=== PATIENT | female | born 1975 | race Caucasian/White ===

== ENCOUNTER 2025-02-26 08:13 | Outpatient (AMB) | payer OTHER, SELFPAY ==
--- OUTSIDE RECORDS SUMMARY | 2025-02-26 09:46 | XMS_ITS | Clinical Summary ---
Author Organization [facility] Address [address] [place] [address] Phone Care Team Providers Care Speeder Machine Operator Name Role Phone Constanza Chase DO Primary Care Provide r Allergies No known active allergies Medications Hospital, Clinic, or Other Facility Administered Medication Ordered Dose Route Frequency Start Date End Date Status levonorgestrel (MIRENA) 20 mcg/24 hours (5 yrs) 52 mg intrauterine device 1 eachIndications:Encounter for insertion of intrauterine contraceptive device 1 each Utrn Every 5 years 08/17/2018 A ctive Active Problems Problem Noted Date Diagnosed Date IUD (intrauterine device) in place 08/17/2018 Overview (08/17/2018): Mirena replaced 08/17/2018 Benign essential hypertension 10/03/2017 Assessment & Plan (10/24/2017 1:23 PM EDT): Well-controlled at the present time Assessment & Plan (10/03/2017 9:57 AM EDT): Well-controlled at the present time not on any medications. Venous stasis dermatitis of both lower extremiti es 10/03/2017 Assessment & Plan (10/24/2017 1:23 PM EDT): As mentioned she has significant venous claudication the left lower extremity from severe reflux in the left great saphenous vein we are going to ablate this I will see the patient thereafter in follow-up Assessment & Plan (10/03/2017 9:57 AM EDT): As above we are going to order a venous reflux study I am anticipating she will have more the way of reflux on the left than the right I will see her thereafter in follow-up and then tailor therapy. Resolved Problems Problem Noted Date Diagnosed Date Resolved Date Obesity (BMI 30-39.9) 10/03/20172019 Assessment & Plan (10/24/2017 1:24 PM EDT): She is exercising on a regular basis and well aware of the need for lifestyle modification Assessment & Plan (10/03/2017 9:57 AM EDT): This patient is overweight but she is very conscious of it and is actively dieting and exercising to lose weight. Immunizations Immunization Administration Dates Next Due COVID-19 (Pre-12/20) Pfizer Vaccine, mRNA, PF Family History Medical History Relation Comments Diabetes Father Hypertension Father Alzheimer's disease Mother Brain cancer Mother Relation Status Comments Father Mother Social History Tobacco Use Types Packs/Day Years Used Date Smoking Tobacco: Never Smokeless Tobacco: Never Tobacco Cessation:Counseling Given: Not Answered Alcohol Use Standard Drinks/Week Comments Not Currently 0 (1 standard drink = 0.6 oz pur e alcohol) Education Answer Date Recorded Are you interested in more education? Not on swapna e 06/25/2022 Are you concerned about learning? Not on file 06/25/2022 No 06/25/2022 No 06/25/2022 Digital Access Answer Date Recorded No 07/23/2022 No 07/23/2022 Reliable internet access at home? Not on file 07/23/2022 Device with a working camera? Not on file Comments No Sex and Gender Information Value Date Recorded Sex Assigned at Not on file Legal Sex Female 9:30 PM EDT Gender Identity Not on file Sexual Orientation Not on file Last Filed Vital Signs Vital Sign Reading Time Taken Comments Blood Pressure 121/72 03/08/2024 12:26 PM EST Pulse 58 03/08/2024 12:26 PM EST Temperature 36.1 C (97 F) 03/08/2024 12:26 PM EST Respiratory Rate 17 03/08/2024 12:26 PM EST Oxygen Saturation 99% 03/08/2024 12:26 PM EST Inhaled Oxygen Concentration - - Weight 75.8 kg (167 lb) 03/08/2024 12:26 PM EST Height 157.5 cm (5' 2 ) 03/08/2024 12:26 PM EST Body Mass Index 30.54 03/08/2024 12:26 PM EST Plan of Treatment Upcoming Encounters Date Type Department Care Team (Late st Contact Info) Description 11/09/2024 Procedure Pass [address] [place] [address] 05/20/2025 10:15 AM EDT Appointment [address] [place] [address] Constanza Chase, [address] [place] [address] [place] [address] Health Maintenance Due Date Last Done Comments LIPID PANEL 1973 DEPRESSION SCREENING 1985 HEPATITIS C SCREENING 07/27/1991 HIV ONE-TIME SCREENING (18-6 5 YEARS) 07/27/1991 SCREENING FOR DIABETES 2008 COLOGUARD 2018 COLONOSCOPY 2018 COLORECTAL CANCER SCREENING 2018 FIT TEST 2018 FOBT 2018 SIGMOIDOSCOPY 2018 VIRTUAL COLONOSCOPY 2018 Adult Td,Tdap Booster 09/27/2021 09/28/2011 PNEUMOCOCCAL VACCINES (50+ years) (1 of 1 - PCV) 07/27/2023 ZOSTER VACCINES (1 of 2) 07/27/2023 BLOOD PRESSURE 09/05/2024 03/08/2024 INFLUENZA VACCINE (#1) 2024 0, 02/01/2012, 02/04/2010 COVID-19 VACCINE (2 - 2024-2 6 season) 2024 05/09/2020 MAMMOGRAM 02/07/2026 02/08/2024 IUD 08/17/2026 08/17/2018 PAP SMEAR 01/31/2027 02/01/2024, 02/25/2017 RSV VACCINE (1 - 1-dose 75+ series) 2048 SMOKING STATUS SCREENING (On ce After 26 Yrs) Completed 02/08/2024 HEPATITIS A VACCINES Aged Out No long er eligible based on patient's age to complete this topic HIB VACCINES Aged Out No longer eligi ble based on patient's age to complete this topic MENINGOCOCCAL VACCINES (ACWY) Aged Out No longer eligible based on patient's age to complete this topic MENINGOCOCCAL VACCINES (B) Aged Out N o longer eligible based on patient's age to complete this topic Medical Devices Not on file Procedures Procedure Name Priority Date/Time Associated Diagnosis Comments BI MAMMOGRAM SCREENING WITH TOMOSYNTHESIS WITH CAD (BILATERAL) Routine 02/08/2024 8:35 AM EST Encounter for gynecological examination without abnormal finding PAP TEST Routine 02/01/2024 12:00 AM EST from Last 3 Months or Most Recently Relevant to Health Maintenance Results * (ABNORMAL) BI MAMMOGRAM SCREENING WITH TOMOSYNTHESIS WITH CAD (BILATERAL) (02/08/2024 8:35 AM EST) Anatomical Region Laterality Modality Breast Left, Breast Right, Breast Bilateral Bila teral Mammography 02/08/2024 12:5 5 PM EST Impressions 02/08/2024 12:58 PM EST 1. Focal asymmetry in the right breast for which additional imaging is recommended with diagnostic mammography and possible ultrasound. 2. No mammographic evidence of malignancy in the left breast. BI-RADS 0 INCOMPLETE Needs additional imaging evaluation The patient will be notified of the results and recommendations. The mammography department will contact the patient to arrange for the additional imaging. Narrative 02/08/2024 12:58 PM EST BI MAMMOGRAM SCREENING WITH TOMOSYNTHESIS WITH CAD (BILATERAL) Additional patient information: Screening. COMPARISON: This is a baseline examination. Breast composition: There are scattered areas of fibroglandular density. FINDINGS: Right A focal asymmetry is present on CC view in the outer right breast at anterior depth. Left No abnormal masses, suspicious calcifications, or other significant findings are identified mammographically in the left breast. Procedure Note Yun Michelle MD - 02/08/2024 BI MAMMOGRAM SCREENING WITH TOMOSYNTHESIS WITH CAD (BILATERAL) Additional patient information: Screening. COMPARISON: This is a baseline examination. Breast composition: There are scattered areas of fibroglandular density. FINDINGS: Right A focal asymmetry is present on CC view in the outer right breast atanterior depth. Left No abnormal masses, suspicious calcifications, or other significantfindings are identified mammographically in the left breast. IMPRESSION: 1. Focal asymmetry in the right breast for which additional imaging isrecommended with diagnostic mammography and possible ultrasound. 2. No mammographic evidence of malignancy in the left breast. BI-RADS 0 INCOMPLETE Needs additional imaging evaluation The patient will be notified of the results and recommendations. Themammography department will contact the patient to arrange for theadditional imaging. us Ari Rangel MD IMG MG EXAMS Final Re sult * Pap Test (02/01/2024 12:00 AM EST) Report [address] [address] Commercial Account Officer: Gerhard Mancuso MD [employer] Cytology Report FINAL DIAGNOSIS A. PAP SMEAR (THIN PREP) CE: SPECIMEN ADEQUACY: Satisfactory for evaluation; transformation zone present. INTERPRETATION: NEGATIVE FOR INTRAEPITHELIAL LESION OR MALIGNANCY. This specimen was analyzed by the automated ThinPrep Imaging System ([employer] and the selected ward were reviewed by a mortgage clerk. Electronically Signed Out By: FAVIAN Hurtado(ASCP) The Pap test is a screening test primarily for squamous cancers and precursors and has associated false-negative and false-positive results. New technologies such as liquid-based preparations may decrease but will not eliminate all false-negative results. Regular sampling and follow-up of unexplained clinical signs and symptoms are recommended to minimize false negative results. PROCEDURES/ADDENDA HPV Testing (Requested) Ordered Date: 02/02/2024 A. PAP SMEAR (THIN PREP) CE: High-risk HPV Panel w/ extended genotyping NEG HPV 16-NEG HPV 18-NEG HPV 45-NEG HPV 33/58-NEG HPV 31-NEG HPV 56/59/66-NEG HPV 51-NEG HPV 52-NEG HPV 35/39/68-NEG Performed by real-time polymerase chain reaction (PCR) at [address] using the FDA-approved BD Onclarity9 HPV Assay with extended genotyping. Uses of the assay in scenarios other than those approved by the FDA should be considered off-label use. The accuracy and precision of this test for all other off-label specimen sources has been verified in the Cytopathology Laboratory of the [facility] and has not been cleared or approved by the U.S. Food and Drug Administration. Clinical correlation is advised. The assay assesses the E6/E7 DNA target and utilizes human beta globin as an internal control. Cytology and HPV testing are screening assays and should not be used as the sole means of detecting cancer. False-positives and false-negatives can occur. CLINICAL HISTORY Date of Last Menstrual Period: Not Provided Menstrual History: Lydia-Menopausal Unknown Contraceptive History: IUD Other Clinical Conditions: Screening Pap SPECIMEN SOURCE A: PAP SMEAR (THIN PREP) CE Patient Name: TARA BENZ : 1975 (Age: 48) Sex: F Institution: [facility] Location: [facility] Date of Collection: 02/01/2024 Date of Reported: 02/06/2024 14:36 Results to: Ari Rangel MD [facility] Final Diagnosis A. PAP SMEAR (THIN PREP) CE: SPECIMEN ADEQUACY: Satisfactory for evaluation; transformation zone present. INTERPRETATION: NEGATIVE FOR INTRAEPITHELIAL LESION OR MALIGNANCY. This specimen was analyzed by the automated ThinPrep Imaging System ([employer].) and the selected ward were reviewed by a mortgage clerk. [facility] Results\Inter pretation A. PAP SMEAR (THIN PREP) CE: High-risk HPV Panel w/ extended genotyping NEG HPV 16-NEG HPV 18-NEG HPV 45-NEG HPV 33/58-NEG HPV 31-NEG HPV 56/59/66-NEG HPV 51-NEG HPV 52-NEG HPV 35/39/68-NEG Performed by real-time polymerase chain reaction (PCR) at [address], [place], [place] using the FDA-approved BD Onclarity HPV Assay with extended genotyping. Uses of the assay in scenarios other than those approved by the FDA should be considered off-label use. The accuracy and precision of this test for all other off-label specimen sources has been verified in the Cytopathology Laboratory of the [facility] and has not been cleared or approved by the U.S. Food and Drug Administration. Clinical correlation is advised. The assay assesses the E6/E7 DNA target and utilizes human beta globin as an internal control. Cytology and HPV testing are screening assays and should not be used as the sole means of detecting cancer. False-positives and false-negatives can occur. [facility] Conversion Type (Conversion Source) 02/01/2024 02/02/2024 9:56 AM EST us Ari Rangel MD CYTOLOGY ORDERABLES Edit ed Result - Final [facility] [address] [place] [address] from Last 3 Months or Most Recently Relevant to Health Maintenance [place] [address] [place] [address] Care Teams Speeder Machine Operator Relationship Specialty Start Date End Date Constanza Chase DO [address] [place] [phone] PCP - General Internal Medicine 10/03/17 Additional Source Comments The information contained in this document represents components of the legal health record. It is not the complete legal health record.[facility]
--- OUTSIDE RECORDS SUMMARY | 2025-02-26 09:46 | XMS_ITS | Encounter Summary ---
Author Organization [facility] Address [address] [place] [address] Phone Care Team Providers Care Battery Stacker Name Role Phone Constanza Chase Primary Care Provide r Encounter Details Date Type Department Care Team (Late st Contact Info) Description 02/01/2024 Procedure Pass [address] [address] Social History Tobacco Use Types Packs/Day Years Used Date Smoking Tobacco: Never Smokeless Tobacco: Never Alcohol Use Standard Drinks/Week Comments Not Currently [...] on file Sexual Orientation Not on file documented as of this encounter Plan of Treatment Upcoming Encounters Date Type Department Care Team (Late st Contact Info) Description 11/09/2024 Procedure Pass [address] [place] [address] 05/20/2025 10:15 AM EDT Appointment [place] [place] [address] Constanza Chase DO [address] [place] [phone] documented as of this encounter Visit Diagnoses Not on filedocumented in this encounter Care Teams Battery Stacker Relationship Specialty Start Date End Date Constanza Chase DO [address] [place] [phone] PCP - General Internal Medicine 10/03/17 documented as of this encounter Additional Source Comments The information contained in this document represents components of the legal health record. It is not the complete legal health record.[facility]
--- OUTSIDE RECORDS SUMMARY | 2025-02-26 09:46 | XMS_ITS | Patient Health Record ---
Author Organization [facility] Address [address] [place] [address] Care Team Providers Care Saloonkeeper Name Role Phone Constanza Chase Primary Care Provider Unavail able Allergies No Known Allergies Reason For Referral No Information Plan Of Treatment Pending Test Test Name Order Date MRI : Lower Ext Other Than Joint W/O X ray : Foot, right 3v 04/30/2021 Insurance Providers Payer Name Payer Address Payer Phone Subscriber Number Group Number Insured Name Patient Relationship to Insured Coverage Start Date Coverage End Date [facility] [address] [facility] [address] [place] [phone] [id number] Tara Trevino Self - patient is the insured Medical (General) History Medical History History ICD Code metatarsalgia, right foot metatarsalgia, left foot pain in right foot pain in left foot plantar fascial fibromatosis Surgical History Surgery Date(Month/Year) back surgery L4-L5 2003 Hospitalization History Reason Date(Month/Year) vaginal delivery 04/11/2010 back surgery L4-L5 2004
--- OUTSIDE RECORDS SUMMARY | 2025-02-26 09:46 | XMS_ITS | Encounter Summary ---
Author Organization [facility] Address [address] [place] [address] Phone Care Team Providers Care Book Jacket Cover Machine Operator Name Role Phone Constanza Chase DO Primary Care Provide r Encounter Details Date Type Department Care Team (Latest Contact Info) Description 11/02/2017 Ancillary Orders [facility] [address] [place] [address] Jefferson Sims DO [address] [facility] [address] [place] [address] Venous insufficiency Social History Tobacco Use Types Packs/Day Years Used Date Smoking Tobacco: Never Smokeless Tobacco: Never Comments Unknown Sex and Gender Information Value Date Recorded Sex Assigned at Not on file Legal Sex Female 9:30 PM EDT Gender Identity Not on file Sexual Orientation Not on file documented as of this encounter Plan of Treatment Upcoming Encounters Date Type Department Care Team (Late st Contact Info) Description 11/09/2024 Procedure Pass [address] [place] [address] 05/20/2025 10:15 AM EDT Appointment [address] [place] [address] Constanza Chase, DO [address] [facility] [address] [place] [phone] documented as of this encounter Results * US Lower Extremity Veins Duplex (Left) (01/24/2018 2:59 PM EST) Anatomical Region Laterality Modality Hip Left, Thigh Left, Knee L eft, Leg Left, Ankle Left, Foot Left Ultrasound Narrative 01/24/2018 4:28 PM EST See scanned document. Procedure Note Misael Jane MD - 01/24/2018 See scanned document. us Jefferson Sims DO CV US VASCULAR Final Result documented in this encounter Visit Diagnoses Diagnosis Venous insufficiency Unspecified venous (peripheral) insufficiency Venous insufficiency Unspecified venous (peripheral) insufficiency Visit for screening mammogram documented in this encounter Additional Health Concerns Infection Onset Date Last Indicated Resolved Time COVID-19 01/29/2023 01/29/2023 02/19/2023 1:21 AM EST documented as of this encounter Care Teams Book Jacket Cover Machine Operator Relationship Specialty Start Date End Date Constanza Chase DO [address] [facility] [address] [place] [address] PCP - General Internal Medicine 10/03/17 documented as of this encounter Additional Source Comments The information contained in this document represents components of the legal health record. It is not the complete legal health record.[facility]
--- OUTSIDE RECORDS SUMMARY | 2025-02-26 09:46 | XMS_ITS | Encounter Summary ---
Author Organization [facility] Address [address] [place] [address] Phone Care Team Providers Care Coffee Attendant Name Role Phone Constanza Chase Primary Care Provide r Encounter Details Date Type Department Care Team (Late st Contact Info) Description 02/08/2024 Procedure Pass [address] [address] Social History Tobacco Use Types Packs/Day Years [...] st Contact Info) Description 11/09/2024 Procedure Pass [address] [place] [address] 05/20/2025 10:15 AM EDT Appointment [place] [place] [address] Constanza Chase DO [address] [place] [phone] documented as of this encounter Visit Diagnoses Not on filedocumented in this encounter Care Teams Coffee Attendant Relationship Specialty Start Date End Date Constanza Chase DO [address] [place] [phone] PCP - General Internal Medicine 10/03/17 documented as of this encounter Additional Source Comments The information contained in this document represents components of the legal health record. It is not the complete legal health record.[facility]
--- NOTE | 2025-02-26 14:44 | MHC.OFFVISWM ---
VS Expanded 02/26/25 14:51 Height 5 ft 2 in Weight 176 lb 8 oz BMI 32.3 Body Fat % 38.8 Body Fat Mass 68.6 Fat Free Mass 108 Visceral Fat Rating 9 Body Water % 43.4 Body Water Mass 76.8 Basal Metabolic Rate/Score 1,484 Intake Visit Reasons: [employer] INTERN MWL BMI 32.3 Allergies No Known Allergies Allergy (Verified 02/26/25 14:44) Medication List - Last Reconciled 02/26/25 by Jeovanny Munroe MD No Known Home Meds HPI HPI [employer]ER INS[employer] INTERN MWL BMI 32.3: Details: Start time: 2.36pm, End time: 3.06pm ?I spent 25 minutes speaking with the patient on the phone plus an additional 5 minutes reviewing and updating records for a total of 30 minutes HPI Comments Details: Previous weight loss efforts: self diet and exercise Wakes up: 5am, Sleeps: 9pm Breakfast: 7am (toast or Whey protein) Lunch: 12.30pm ([employer] hot area: chicken fingers and [employer] protein bar) Dinner: 7.30pm (omelette, pasta, chicken) Snacks: 10am (Crispy protein bar), 4pm (nuts), 8pm (desserts) Exercise: Has home stationary bike without calorie tracking Beverages: Coffee (5-7 cups/d either black or with creamer), Tea: 2 cups/d (black), Juice: none, Soda: none, ETOH: none PFSH Medical History (Updated 02/26/25 @ 15:00 by Jeovanny Munroe MD) BMI 32.0-32.9,adult Obesity Surgical History (Updated 12/31/24 @ 11:34 by Sahara Jackson CMA) History of back surgery Family History (Updated 12/31/24 @ 11:36 by Sahara Jackson CMA) Mother Dementia Cancer Father Diabetes Social History (Updated 12/31/24 @ 11:36 by Sahara Jackson CMA) Alcohol intake: current Patient Tobacco Use Status: Never used Tobacco Telehealth Telehealth Telehealth Platform: Telephone Location of provider rendering services: practice address Location of patient: address on file Patient Identification confirmed using: Name, : Yes Telehealth method: voice only Patient verbally consented to treatment: Yes Patient verbally consented to billing insurance company: Yes Patient informed of any privacy concerns related to visit: Yes Minutes spent on Phone/Video with Pt.: 30 Assessment & Plan Assessment & Plan (1) Obesity: Code(s): E66.9 - Obesity, unspecified Category: Medical Qualifiers: Obesity type: due to excess calories Obesity classification: adult class 1 (BMI 30 - 34.9) Serious obesity comorbidity presence: without serious comorbidity Body mass index: BMI 32.0-32.9 Qualified Code(s): E66.811 - Obesity, class 1; E66.09 - Other obesity due to excess calories; Z68.32 - Body mass index [BMI] 32.0-32.9, adult Plan: 1.? Please send me weight measurements from the [employer] body composition scale. 2. The best choice would be to use the stationary bike at home. Goal is to exercise for 150 minutes per week. 3. Goal is to lose at least 1.5-2lbs per week 4. Goal to lose at least 10% of your weight, which is about 18lbs. Minimum weight goal: 158lbs 5. I ordered a medication to help you with the weight loss which is called Zepbound. My office will try to authorize it. Please let me know when you receive it so I can give you a meal and exercise plan. Common side effects include nausea, vomiting, constipation, diarrhea, abdominal pain. Please let me know if you develop any of these symptoms. 6. Please track the calories you consume daily and aim not to exceed the 1200 calories per day. Avoid high calorie drinks, fried, or high in fat foods as well as large amount of carbohydrates (sweets, potatoes, rice, or pasta). Medications: New tirzepatide (weight loss) (Zepbound) for 4 weeks 2.5 mg (0.5 mL) subcut QWEEK 2 mL 0RF E66.9 - Obesity, unspecified, Z68.32 - Body mass index [BMI] 32.0-32.9, adult
[2025-02-26 14:51] VITALS: BMI 32.3
== END 2025-02-26 15:07 | disposition home or self-care (01) ==
LOC: HO.HBS 08:13
PROVIDERS: PCP Internal Medicine; Visit Provider Surgery
DX: E66.811 Obesity, class 1 (principal); E66.09 Other obesity due to excess calories; Z68.32 Body mass index [BMI] 32.0-32.9, adult
CPT/HCPCS: 99203